=== PATIENT | male | born 1985 | race Caucasian/White ===

== ENCOUNTER 2024-06-20 19:05 | Emergency (ER) | payer SELFPAY ==
[~2024-06-20] VITALS: Ht 172.7 cm; Wt 80.0 kg
[2024-06-20 19:08] VITALS: TEMP 36.7; O2SAT 99
[2024-06-20 19:44] VITALS: BP 127/59; PULSE 95; RESP 16; O2SAT 100
== END 2024-06-20 19:46 | disposition home or self-care (01) ==
LOC: ER 19:05
DX: F10.99 Alcohol use, unspecified with unspecified alcohol-induced disorder (principal); Y90.9 Presence of alcohol in blood, level not specified
CPT/HCPCS: 99283